=== PATIENT | male | born 1965 | race Caucasian/White ===

== ENCOUNTER → 2019-12-31 | Outpatient (CLI) | payer OTHER ==
[~2019-12-31] MED LIST: ADULT LOW DOSE81 MG PO; ASPIRIN325 PO; CIPROFLOXACIN500 M1 PO; EFFIENT10 MG PO; FERREX 150 PLU1 EAC1 PO; FLAGYL500 MG PO; LIPITOR 10 MG10 M1 PO; LISINOPRIL-HCT1 EACH PO; LISINOPRIL2.5 MG PO; LIVALO4 MG PO; NITROGLYCERIN0.4 MG SUBLING; OMEPRAZOLE20 MG PO; PACERONE 200 M200 M1 PO; TOPROL XL50 MG PO; XANAX 0.5 MG0.5 M1 PO
== END ==
LOC: SJCVCIMAG 12:19
PROVIDERS: ATTEND Internal Medicine Cardiovascular Disease
DX: I25.810 Atherosclerosis of coronary artery bypass graft(s) without angina pectoris (principal); Z95.1 Presence of aortocoronary bypass graft

== ENCOUNTER → 2020-11-04 | Outpatient (CLI) | payer OTHER ==
[~2020-11-04] VITALS: Ht 182.9 cm; Wt 102.5 kg
[~2020-11-04] MED LIST changes: +ALL DAY ALLERGY10 M3 PO; +CRESTOR20 MG PO; +KETOCONAZOLE15 GM TOP; +LISINOPRIL10 MG PO; +MUPIROCIN15 GM TOP; +NORCO 10-325 T1 EACH PO; +ROSUVASTATIN CA20 MG PO; +SINGULAIR 10 MG10 MG PO; +TIZANIDINE HCL4 M1 PO; +TRAMADOL 50 MG50 MG PO; +TRIAMCINOLONE A80 G2 TOP
[2020-11-04 11:19] VITALS: BP 123/77
--- NOTE | 2020-11-04 11:58 | NUR ---
Pain Clinic Assessment: 1. History of Osteoarthritis: Left Lower Extremity History of Rheumatoid Arthritis: 2. Height: 6 ft. 0 in. 182.9 cm. Weight: 226.0 lb. oz. 102.513 kg. Patient's BMI: 30.6 3. Vital Signs: BP: 123/77 Pulse: 65 Resp: 16 Temp: 02 Sat: 98 ECG Mon: 4. Pain Intensity: 3 5. Fall Risk: Dizziness: Y Needs help standing or walking: N Fallen in the last 3 months: N Fall risk comments: 6. Patient on Blood Thinner: None 7. History of Hypertension: Y 8. Opioid Therapy greater than 6 weeks: Y Opiate Contract Signed: 9. Risk Assessment Tool Provided: 10. Functional Assessment Tool: 11. Recreational Drug Use: Never Drug Type: Tobacco Use: Current Every Day Smoker Tobacco Type: Cigarettes Amount or Packs/day: 1/2 How Many Years: Alcohol Use: Yes Frequency: Weekly Quant: 6
== END ==
LOC: PAIN 09:20
PROVIDERS: ATTEND Anesthesiology Pain Medicine
DX: M54.12 Radiculopathy, cervical region (principal); M48.02 Spinal stenosis, cervical region; F17.200 Nicotine dependence, unspecified, uncomplicated

== ENCOUNTER → 2020-11-08 | Outpatient (CLI) | payer OTHER ==
[~2020-11-08] VITALS: Ht 182.9 cm; Wt 102.5 kg
[2020-11-08 14:01] VITALS: BP 123/84
--- NOTE | 2020-11-08 14:26 | NUR ---
Pain Clinic Assessment: 1. History of Osteoarthritis: Left Lower Extremity History of Rheumatoid Arthritis: 2. Height: 6 ft. 0 in. 182.9 cm. Weight: 226.0 lb. oz. 102.513 kg. Patient's BMI: 30.6 3. Vital Signs: BP: 123/84 Pulse: 76 Resp: 14 Temp: 02 Sat: 97 ECG Mon: 4. Pain Intensity: 7 5. Fall Risk: Dizziness: N Needs help standing or walking: N Fallen in the last 3 months: N Fall risk comments: 6. Patient on Blood Thinner: None 7. History of Hypertension: Y 8. Opioid Therapy greater than 6 weeks: Y Opiate Contract Signed: 9. Risk Assessment Tool Provided: low-0 10. Functional Assessment Tool: 43/ 11. Recreational Drug Use: Never Drug Type: Tobacco Use: Current Every Day Smoker Tobacco Type: Amount or Packs/day: How Many Years: Alcohol Use: Yes Frequency: Quant:
== END | disposition home or self-care (01) ==
LOC: PAIN 12:03
PROVIDERS: ATTEND Anesthesiology Pain Medicine
DX: M54.12 Radiculopathy, cervical region (principal); G89.29 Other chronic pain; I10 Essential (primary) hypertension; I25.10 Atherosclerotic heart disease of native coronary artery without angina pectoris; E78.00 Pure hypercholesterolemia, unspecified; F17.210 Nicotine dependence, cigarettes, uncomplicated; Z98.890 Other specified postprocedural states; Z79.899 Other long term (current) drug therapy; Z95.1 Presence of aortocoronary bypass graft

== ENCOUNTER → 2021-01-27 | Outpatient (CLI) | payer OTHER ==
[~2021-01-27] VITALS: Ht 182.9 cm; Wt 102.3 kg
[2021-01-27 09:53] VITALS: BP 112/80
--- NOTE | 2021-01-27 10:08 | NUR ---
Pain Clinic Assessment: 1. History of Osteoarthritis: Left Lower Extremity History of Rheumatoid Arthritis: 2. Height: 6 ft. 0 in. 182.9 cm. Weight: 225.6 lb. oz. 102.332 kg. Patient's BMI: 30.6 3. Vital Signs: BP: 112/80 Pulse: 70 Resp: 16 Temp: 02 Sat: 100 ECG Mon: 4. Pain Intensity: 4 5. Fall Risk: Dizziness: Y Needs help standing or walking: N Fallen in the last 3 months: N Fall risk comments: 6. Patient on Blood Thinner: None 7. History of Hypertension: Y 8. Opioid Therapy greater than 6 weeks: Y Opiate Contract Signed: 9. Risk Assessment Tool Provided: low-0 10. Functional Assessment Tool: 11. Recreational Drug Use: Never Drug Type: Tobacco Use: Current Every Day Smoker Tobacco Type: Cigarettes Amount or Packs/day: 15 How Many Years: Alcohol Use: Yes Frequency: Weekly Quant: 2
== END | disposition home or self-care (01) ==
LOC: PAIN 07:03
PROVIDERS: ATTEND Anesthesiology Pain Medicine
DX: M54.12 Radiculopathy, cervical region (principal); G89.29 Other chronic pain; I10 Essential (primary) hypertension; E78.00 Pure hypercholesterolemia, unspecified; I25.10 Atherosclerotic heart disease of native coronary artery without angina pectoris; F17.210 Nicotine dependence, cigarettes, uncomplicated; Z98.890 Other specified postprocedural states; Z79.899 Other long term (current) drug therapy